=== PATIENT | female | born 1985 | race Caucasian/White ===

== ENCOUNTER 2016-11-08 16:38 | Emergency (ER) | payer MEDICAID ==
[~2016-11-08] VITALS: Ht 160 cm; Wt 77.0 kg
[2016-11-08] MEDS ORDERED: IRON-1 PO (17:02)
[2016-11-08] MEDS ORDERED: PREN-55 PO (17:02)
[2016-11-08] MEDS ORDERED: NITR50CA2 PO (17:03)
[2016-11-08] MEDS ORDERED: SODIUM CHLORIDE 0.9% 1,000 ML IV ONE (22:22)
[2016-11-08] MEDS ORDERED: ACETAMINOPHEN 325MG TABLET PO ONE (22:30)
[2016-11-08 23:26] LABS: BASOPHILS % 0.7 % (0.0-2.0); EOSINOPHILS % 0.7 % (0.0-5.0); HEMATOCRIT. 39.3 % (36.0-48.0); HEMOGLOBIN. 13.6 g/dL (12.0-16.0); LYMPHOCYTES % 20.7 % (20.0-50.0); MEAN CORPUSCULAR HEMOGLOBIN 30.3 pg (28.0-32.0); MEAN CORPUSCULAR VOLUME 87.2 fL (81.0-99.0); MONOCYTES % 7.1 % (2.0-8.0); NEUTROPHILS % 70.8 % (40.0-76.0); PLATELET 312 x1000/uL (130-400)
[2016-11-08 23:28] LABS: CLARITY URINE CLOUDY (CLEAR); COLOR URINE YELLOW (YELLOW); GLUCOSE URINE NEGATIVE (NEGATIVE); KETONES URINE NEGATIVE (NEGATIVE); LEUKOCYTE ESTERASE URINE TRACE (NEGATIVE); NITRITE URINE NEGATIVE (NEGATIVE); OCCULT BLOOD URINE 3+ (NEGATIVE); PROTEIN URINE TRACE (NEGATIVE); SPECIFIC GRAVITY URINE 1.016 (1.005-1.030); UROBILINOGEN URINE 0.2 E.U./dL (0.2-1.0)
[2016-11-08 23:38] LABS: HCG SCREEN POSITIVE
[2016-11-08 23:52] LABS: CARBON DIOXIDE 26 mEq/L (21-32); CHLORIDE 102 mEq/L (98-107)
[2016-11-09 00:02] LABS: B-HCG QUANTITATIVE 4491 mIU/mL (<3)
[2016-11-09 00:53] VITALS: BP 108/62
== END 2016-11-09 00:53 | disposition home or self-care (01) ==
LOC: ER 16:38
DX: O03.9 Complete or unspecified spontaneous abortion without complication (principal); O23.41 Unspecified infection of urinary tract in pregnancy, first trimester; Z3A.01 Less than 8 weeks gestation of pregnancy
CPT/HCPCS: 36415; 76801; 76817; 80048; 81001; 84702; 84703; 85025; 86850; 86900; 86901; 99285; J7030; Z7610